=== PATIENT | male | born 1950 | race Caucasian/White ===

== ENCOUNTER 2018-01-09 00:34 | Inpatient (IN) | payer MEDICARE ==
[2018-01-09 01:31] LABS: ADD MAN DIFF? NO
[2018-01-09] MEDS: SODIUM CHLORIDE 0.9% 1L BAG IV* (01:31)
[2018-01-09 01:33] LABS: ABNORMAL IP MESSAGE 1; BASOPHILS % 0.3 % (0.0-2.0); EOSINOPHILS # 0.2 10^3/ul (0.0-0.5); EOSINOPHILS % 1.7 % (0.0-7.0); HEMATOCRIT 26.2 % (42.0-52.0); LYMPHOCYTES # 0.5 10^3/ul (0.8-2.9); LYMPHOCYTES % 4.9 % (15.0-51.0); MEAN CORPUSCULAR HEMOGLOBIN 29.5 pg (29.0-33.0); MEAN CORPUSCULAR HGB CONC 30.5 g/dl (32.0-37.0); MEAN CORPUSCULAR VOLUME 96.7 fl (82.0-101.0); MEAN PLATELET VOLUME 10.1 fl (7.4-10.4); MONOCYTE # 0.6 10^3/ul (0.3-0.9); MONOCYTES % 5.6 % (0.0-11.0); NEUTROPHIL # 8.8 10^3/ul (1.6-7.5); NEUTROPHILS % 87.1 % (39.0-77.0); PLATELET COUNT 153 10^3/UL (140-415); POSITIVE DIFF @See below; RED BLOOD COUNT 2.71 10^6/ul (4.70-6.10)
[2018-01-09 01:33] LABS: WHITE BLOOD COUNT 10.1 10^3/ul (4.8-10.8)
[2018-01-09 01:52] LABS: INR 1.63; PROTIME 19.7 Sec (11.9-14.9); PT RATIO 1.5
[2018-01-09 01:53] LABS: ANION GAP 9 (5-13); BLOOD UREA NITROGEN 52 mg/dl (7-20); CALCIUM 6.9 mg/dl (8.4-10.2); CARBON DIOXIDE 20 mmol/L (21-31); CHLORIDE 115 mmol/L (97-110); CREATININE 3.15 mg/dl (0.61-1.24); GLUCOSE 102 mg/dl (70-220); PARTIAL THROMBOPLASTIN TIME 37.5 Sec (23.0-35.0); SODIUM 144 mmol/L (135-144)
[2018-01-09 01:57] LABS: POTASSIUM 2.8 mmol/L (3.5-5.1)
[2018-01-09 02:01] LABS: ADD UMIC YES; UR ASCORBIC ACID NEGATIVE (NEGATIVE); UR BACTERIA FEW /HPF (NONE SEEN); UR BILIRUBIN (Dip) NEGATIVE (NEGATIVE); UR BLOOD (Dip) 3+ mg/dL (NEGATIVE); UR CLARITY TURBID (CLEAR); UR COLOR AMBER (YELLOW); UR GLUCOSE (Dip) NEGATIVE (NEGATIVE); UR KETONES (Dip) NEGATIVE (NEGATIVE); UR LEUKOCYTE ESTERASE (Dip) 1+ Leu/ul (NEGATIVE); UR MUCUS MODERATE /HPF (NONE SEEN); UR NITRITE (Dip) NEGATIVE (NEGATIVE); UR RBC > 182 /HPF (0-5); UR SPECIFIC GRAVITY (Dip) 1.013 (1.003-1.030); UR SQUAMOUS EPITHELIAL CELL FEW /HPF (FEW); UR TOTAL PROTEIN (Dip) 2+ mg/dl (NEGATIVE); UR UROBILINOGEN (Dip) NEGATIVE (NEGATIVE); UR WBC 54 /HPF (0-5)
[2018-01-09 02:10] LABS: TROPONIN-I 0.381 ng/ml (0.000-0.120)
[2018-01-09] MEDS ORDERED: NACL 0.9% 3 ML SYG IV (02:30)
[2018-01-09] MEDS ORDERED: NITROGLYCERIN (SL) 0.4 MG TAB SL (02:30)
[2018-01-09] MEDS ORDERED: morphine 2 MG INJ IV (02:30)
[2018-01-09] MEDS ORDERED: ONDANSETRON 4 MG INJ IV (02:30)
[2018-01-09] MEDS ORDERED: ACETAMINOPHEN 325 MG TAB PO (02:30)
[2018-01-09 02:41] LABS: SODIUM,URINE RANDOM 18 mmol/L (30-90)
[2018-01-09 02:42] LABS: MAGNESIUM 1.6 mg/dl (1.7-2.5)
[2018-01-09 02:43] LABS: CREATININE,URINE RANDOM 188.36 mg/dl (20-370)
[2018-01-09] MEDS ORDERED: DEXTROSE 50% 50 ML SYRINGE IV ×2 (03:00)
[2018-01-09] MEDS ORDERED: GLUCAGON 1 MG INJ IM (03:00)
[2018-01-09] MEDS ORDERED: GLUCOSE GEL 15 GRAM TUBE PO ×2 (03:00)
[2018-01-09] MEDS ORDERED: GLUCOSE GEL 15 GRAM TUBE BUCCAL (03:00)
[2018-01-09] MEDS: CEFTRIAXONE 2 GM/50 ML (PMX) 50 ML IVPB (03:06)
[2018-01-09] MEDS: POTASSIUM CHLORIDE 100 ML IVPB ×3 (03:21→09:47)
[2018-01-09 03:39] LABS: OSMOLALITY 303 mOsm/kg (280-295)
[2018-01-09 03:45] LABS: OSMOLALITY,URINE 333 mOsm/kg (250-1200)
[2018-01-09] MEDS: CALCIUM GLUCONATE 10% 1 GM in DEXTROSE 5% 100 ML IVPB (04:00)
[2018-01-09] MEDS: SOD CHLORIDE 0.9% 1,000 ML IV (04:03)
[2018-01-09 05:49] LABS: ADD MAN DIFF? NO
[2018-01-09 05:58] LABS: WHITE BLOOD COUNT 9.5 10^3/ul (4.8-10.8)
[2018-01-09 05:58] LABS: ABNORMAL IP MESSAGE 1; BASOPHILS % 0.2 % (0.0-2.0); EOSINOPHILS # 0.1 10^3/ul (0.0-0.5); EOSINOPHILS % 0.8 % (0.0-7.0); HEMATOCRIT 31.4 % (42.0-52.0); HEMOGLOBIN 9.4 g/dl (14.0-18.0); LYMPHOCYTES # 0.5 10^3/ul (0.8-2.9); LYMPHOCYTES % 5.7 % (15.0-51.0); MEAN CORPUSCULAR HEMOGLOBIN 29.3 pg (29.0-33.0); MEAN CORPUSCULAR HGB CONC 29.9 g/dl (32.0-37.0); MEAN CORPUSCULAR VOLUME 97.8 fl (82.0-101.0); MEAN PLATELET VOLUME 9.9 fl (7.4-10.4); MONOCYTE # 0.5 10^3/ul (0.3-0.9); MONOCYTES % 4.7 % (0.0-11.0); NEUTROPHIL # 8.4 10^3/ul (1.6-7.5); NEUTROPHILS % 88.2 % (39.0-77.0); PLATELET COUNT 170 10^3/UL (140-415); POSITIVE DIFF @See below; RED BLOOD COUNT 3.21 10^6/ul (4.70-6.10); RED CELL DISTRIBUTION WIDTH 13.1 % (11.5-14.5)
[2018-01-09 06:01] LABS: HEMOGLOBIN A1C 6.5 % (0-5.9)
[2018-01-09 06:11] LABS: IRON 32 ug/dl (35-150)
[2018-01-09 06:18] LABS: LACTIC ACID 1.2 mmol/L (0.5-2.0)
[2018-01-09 06:19] LABS: CREATINE KINASE 252 IU/L (23-200)
[2018-01-09 06:20] LABS: % IRON SATURATION 11 % SAT (22-52); TOTAL IRON BINDING CAPACITY 281 ug/dl (241-421)
[2018-01-09 06:26] LABS: CK INDEX 2.1; CK-MB 5.27 ng/ml (0.0-2.4)
[2018-01-09 06:27] LABS: TROPONIN-I 0.409 ng/ml (0.000-0.120)
[2018-01-09] MEDS: MAGNESIUM SULFATE 2 GM/50 ML 50 ML IVPB (06:27)
[2018-01-09] MEDS: PANTOPRAZOLE (EC) 40 MG TAB PO (06:28)
[2018-01-09 06:29] LABS: ALANINE AMINOTRANSFERASE 45 IU/L (13-69); ALBUMIN 3.5 g/dl (3.3-4.9); ALBUMIN/GLOBULIN RATIO 1.16; ALKALINE PHOSPHATASE 63 IU/L (42-121); ANION GAP 14 (5-13); ASPARTATE AMINO TRANSFERASE 64 IU/L (15-46); BILIRUBIN,INDIRECT 0.2 mg/dl (0-1.1); BILIRUBIN,TOTAL 0.2 mg/dl (0.2-1.3); BLOOD UREA NITROGEN 55 mg/dl (7-20); CALCIUM 8.4 mg/dl (8.4-10.2); CARBON DIOXIDE 21 mmol/L (21-31); CHLORIDE 109 mmol/L (97-110); CREATININE 3.45 mg/dl (0.61-1.24); GLUCOSE 68 mg/dl (70-220); MAGNESIUM 1.9 mg/dl (1.7-2.5); PHOSPHORUS 6.3 mg/dl (2.5-4.9); POTASSIUM 4.1 mmol/L (3.5-5.1); SODIUM 144 mmol/L (135-144); TOTAL PROTEIN 6.5 g/dl (6.1-8.1)
[2018-01-09 07:09] LABS: THYROID STIMULATING HORMONE 0.481 MIU/L (0.465-4.680)
[2018-01-09] MEDS: INSULIN ASPART [NOVOLOG] 3 ML PEN SC ×4 (07:55→21:00)
[2018-01-09] MEDS: RIVAROXABAN 20 MG TABLET PO (09:45)
[2018-01-09] MEDS: CLOPIDOGREL 75 MG TAB PO (09:46)
[2018-01-09] MEDS: AMIODARONE 200 MG TAB PO (09:46)
[2018-01-09] MEDS: ALBUMIN HUMAN 25% 100 ML IV ×2 (09:48→10:59)
[2018-01-09] MEDS: INFLUENZA VIRUS VACCINE 0.5 ML (DISPENSING) IM* (10:00)
[2018-01-09 12:09] LABS: ADD UMIC YES; UR ASCORBIC ACID NEGATIVE (NEGATIVE); UR BACTERIA FEW /HPF (NONE SEEN); UR BILIRUBIN (Dip) NEGATIVE (NEGATIVE); UR BLOOD (Dip) 2+ mg/dL (NEGATIVE); UR CLARITY SLIGHTLY CLOUDY (CLEAR); UR COLOR YELLOW (YELLOW); UR GLUCOSE (Dip) NEGATIVE (NEGATIVE); UR KETONES (Dip) NEGATIVE (NEGATIVE); UR LEUKOCYTE ESTERASE (Dip) NEGATIVE Leu/ul (NEGATIVE); UR NITRITE (Dip) NEGATIVE (NEGATIVE); UR RBC 9 /HPF (0-5); UR SPECIFIC GRAVITY (Dip) 1.011 (1.003-1.030); UR TOTAL PROTEIN (Dip) 1+ mg/dl (NEGATIVE); UR UROBILINOGEN (Dip) NEGATIVE (NEGATIVE); UR WBC 2 /HPF (0-5)
[2018-01-09 12:18] LABS: CREATINE KINASE 176 IU/L (23-200)
[2018-01-09 12:25] LABS: CK INDEX 2.4; CK-MB 4.22 ng/ml (0.0-2.4)
[2018-01-09 12:27] LABS: TROPONIN-I 0.256 ng/ml (0.000-0.120)
[2018-01-09 12:29] LABS: SODIUM,URINE RANDOM 41 mmol/L (30-90)
[2018-01-09 12:29] LABS: CREATININE,URINE RANDOM 84.45 mg/dl (20-370)
[2018-01-09] MEDS ORDERED: MAGNESIUM SULFATE 1 GM/D5W 100 ML IVPB (13:00)
[2018-01-09 17:30] LABS: CREATINE KINASE 154 IU/L (23-200)
[2018-01-09 17:43] LABS: CK INDEX 2.4; CK-MB 3.67 ng/ml (0.0-2.4)
[2018-01-09 17:45] LABS: TROPONIN-I 0.212 ng/ml (0.000-0.120)
[2018-01-09] MEDS: DEXTROSE 5%-0.45% NACL 1,000 ML IV ×2 (17:51→20:54)
[2018-01-09] MEDS: MULTIVITAMINS/MINERALS TAB PO (17:52)
[2018-01-09] MEDS: SENNA TAB PO (20:55)
[2018-01-09] MEDS: traZODone 100 MG TAB PO (20:55)
[2018-01-09] MEDS: ATORVASTATIN 20 MG TAB PO (20:55)
[2018-01-09] MEDS: DOCUSATE SODIUM 100 MG CAP PO (20:55)
[2018-01-09] MEDS: morphine (ER) 15 MG TAB PO (20:57)
[2018-01-09] MEDS ORDERED: INSULIN GLARGINE [LANTus] (100 UNITS/ML) SYG SC (21:00)
[2018-01-09] MEDS ORDERED: morphine (ER) 15 MG TAB PO (21:00)
[2018-01-10] MEDS: ACCU-CHEK XX (01:45)
[2018-01-10] MEDS: CEFTRIAXONE 2 GM/50 ML (PMX) 50 ML IVPB (01:46)
[2018-01-10] MEDS ORDERED: PENDING SANTYL ORDER FOR WOUND CARE XX (04:30)
[2018-01-10] MEDS: PANTOPRAZOLE (EC) 40 MG TAB PO (05:28)
[2018-01-10 07:10] LABS: HEMOGLOBIN A1C 6.7 % (0-5.9)
[2018-01-10 07:14] LABS: PHOSPHORUS 4.8 mg/dl (2.5-4.9)
[2018-01-10 07:14] LABS: MAGNESIUM 2.2 mg/dl (1.7-2.5)
[2018-01-10 07:21] LABS: HDL CHOLESTEROL 19 mg/dl (30-78); LDL CHOLESTEROL,CALCULATED 39 mg/dl; TRIGLYCERIDES 93 mg/dl (0-149)
[2018-01-10 07:21] LABS: CHOLESTEROL 77 mg/dl (100-200)
[2018-01-10] MEDS: INSULIN ASPART [NOVOLOG] 3 ML PEN SC ×3 (08:22→17:49)
[2018-01-10] MEDS: DEXTROSE 5%-0.45% NACL 1,000 ML IV ×2 (08:30→11:37)
[2018-01-10] MEDS: SENNA TAB PO (08:50)
[2018-01-10] MEDS: DOCUSATE SODIUM 100 MG CAP PO (08:50)
[2018-01-10] MEDS: MULTIVITAMINS/MINERALS TAB PO (08:50)
[2018-01-10] MEDS: ASCORBIC ACID 500 MG TAB PO (08:50)
[2018-01-10] MEDS: CLOPIDOGREL 75 MG TAB PO (08:50)
[2018-01-10] MEDS: AMIODARONE 200 MG TAB PO (08:52)
[2018-01-10 09:00] LABS: ANION GAP 12 (5-13); BLOOD UREA NITROGEN 56 mg/dl (7-20); CALCIUM 8.4 mg/dl (8.4-10.2); CARBON DIOXIDE 17 mmol/L (21-31); CHLORIDE 110 mmol/L (97-110); CREATININE 3.22 mg/dl (0.61-1.24); GLUCOSE 204 mg/dl (70-220); POTASSIUM 4.2 mmol/L (3.5-5.1); SODIUM 139 mmol/L (135-144)
[2018-01-10] MEDS ORDERED: INSULIN GLARGINE [LANTus] (100 UNITS/ML) SYG SC (13:30)
[2018-01-10 13:52] LABS: CREATININE, RANDOM URINE 85 mg/dL (20-320); MICROALBUMIN 9.5 mg/dL; MICROALBUMIN/CREATININE RATIO 112 (<30)
[2018-01-10] MEDS: SOD FERRIC GLUC COMPLX 125 MG in SOD CHLORIDE 0.9% 100 ML IVPB (17:43)
== END 2018-01-10 21:20 | DRG 682 ==
LOC: E/R 00:34 → TEL 02:14
PROVIDERS: Family Medicine
DX: N17.9 Acute kidney failure, unspecified (principal); I21.4 Non-ST elevation (NSTEMI) myocardial infarction; I13.0 Hypertensive heart and chronic kidney disease with heart failure and stage 1 through stage 4 chronic kidney disease, or unspecified chronic kidney disease; E87.2 Acidosis; E11.649 Type 2 diabetes mellitus with hypoglycemia without coma; E11.22 Type 2 diabetes mellitus with diabetic chronic kidney disease; E83.51 Hypocalcemia; R13.10 Dysphagia, unspecified; E83.42 Hypomagnesemia; I50.9 Heart failure, unspecified; I11.0 Hypertensive heart disease with heart failure; L89.619 Pressure ulcer of right heel, unspecified stage; J44.9 Chronic obstructive pulmonary disease, unspecified; Z89.612 Acquired absence of left leg above knee; D50.9 Iron deficiency anemia, unspecified; F41.9 Anxiety disorder, unspecified; E87.6 Hypokalemia; N18.9 Chronic kidney disease, unspecified; I25.10 Atherosclerotic heart disease of native coronary artery without angina pectoris; G89.29 Other chronic pain; K21.9 Gastro-esophageal reflux disease without esophagitis; Z72.0 Tobacco use; Z79.4 Long term (current) use of insulin; Z79.02 Long term (current) use of antithrombotics/antiplatelets; Z95.810 Presence of automatic (implantable) cardiac defibrillator
CPT/HCPCS: 36415; 71045; 71250; 76775; 80048; 80053; 80061; 81001; 81003; 82043; 82533; 82550; 82553; 82570; 82728; 82962; 83036; 83540; 83605; 83735; 83930; 83935; 84100; 84155; 84300; 84443; 84484; 85025; 85610; 85730; 87040; 87081; 87086; 90686; 92526; 92610; 93005; 93306; 93971; 96360; 99285-25; G0378